=== PATIENT | male | born 1995 | race Caucasian/White ===

== ENCOUNTER 2016-10-19 20:24 | Emergency (ER) | payer MEDICAID ==
[~2016-10-19] VITALS: Ht 182.9 cm; Wt 77.0 kg
[~2016-10-19 20:24] MED LIST: HYDR-3511 PO
[2016-10-19] MEDS ORDERED: IBUPROFEN 600MG TABLET PO ONE (22:30)
[2016-10-19] MEDS ORDERED: LIDOCAINE HCL 1% 20ML VIAL (Pyxis) INJ MC ONE (22:30)
[2016-10-19] MEDS ORDERED: TETANUS, DIPHTHERIA, PERTUSSIS VAC/PF 0.5ML (>7YR OLD) IM ONE (22:30)
[2016-10-19] MEDS ORDERED: BACITRACIN ZINC OINT UDPKT TOP ONE (22:30)
[2016-10-19 22:43] VITALS: BP 124/67
== END 2016-10-19 23:15 | disposition home or self-care (01) ==
LOC: ER 20:48
DX: S51.012A Laceration without foreign body of left elbow, initial encounter (principal); W26.8XXA Contact with other sharp object(s), not elsewhere classified, initial encounter; Y93.89 Activity, other specified; Y92.098 Other place in other non-institutional residence as the place of occurrence of the external cause; Z23 Encounter for immunization
CPT/HCPCS: 12002; 90471; 90715; 99283; J3490; Z7610